=== PATIENT | female | born 1995 | race Caucasian/White ===

== ENCOUNTER 2024-04-24 01:52 | Emergency (ER) | payer OTHER, SELFPAY ==
[2024-04-24 02:03] VITALS: BP 120/67; PULSE 103; RESP 20; TEMP 36.7; O2SAT 98; BMI 32.2
[2024-04-24 02:40] LABS: Basophils Percent Auto 0.2 % (0-2); Eosinophils Absolute Auto 0.1 X10*3/uL (0.0-0.4); Hematocrit 38.6 % (37.0-47.0); Hemoglobin 13.5 g/dl (12.0-16.0); Imm Gran Abs Auto 0.01 X10*3/uL (0.00-0.03); Imm Gran Pct Auto 0.2 % (0.0-0.4); Lymphocytes Absolute Auto 1.3 X10*3/uL (1.2-4.9); MANUAL DIFF FLAG NO; Mean Corpuscular Hemoglobin 27.7 pg (27.0-33.0); Mean Corpuscular Volume 79.3 fL (80.0-98.0); Mean Platelet Volume 9.7 fL (9.4-12.3); Monocytes Absolute Auto 0.5 X10*3/uL (0.1-1.2); Monocytes Percent Auto 9.2 % (2-11); Neutrophils Absolute Auto 3.9 x10*3/uL (2.0-8.3); Neutrophils Percent Auto 67.4 % (45-73); Platelet Count 200 X10*3/uL (160-400); Red Blood Count 4.87 X10*6/uL (4.20-5.50); Red Cell Distribution Width 12.7 % (11.0-16.0); White Blood Count 5.8 X10*3/uL (4.8-10.8)
[2024-04-24 03:00] LABS: Alanine Aminotransferase 64 U/L (0-31); Anion Gap 11 (12-20); Aspartate Amino Transferase 64 U/L (5-31); Bilirubin Total 0.8 mg/dL (0.0-1.0); Blood Urea Nitrogen 6 mg/dL (9-16); Calcium 8.9 mg/dL (8.4-10.2); Carbon Dioxide 21 mmol/L (22-29); Chloride 111 mmol/L (96-108); Creatinine Clr Calc Pharmacy 124.7; Estimated Glomerular Filt Rate > 60; Glucose Random 109 mg/dL (60-115); HCG Quantitative < 2 mIU/mL; Potassium 3.5 mmol/L (3.3-5.1); Sodium 139 mmol/L (135-145); Total Protein 7.3 g/dL (6.5-8.0)
[2024-04-24 03:28] LABS: Alkaline Phosphatase 61 U/L (39-117)
[2024-04-24 03:57] VITALS: BP 117/83; PULSE 88; RESP 20; TEMP 36.7; O2SAT 100
[2024-04-24 07:01] VITALS: BP 115/76; PULSE 81; RESP 16; O2SAT 97
--- NOTE | 2024-04-24 07:15 | ED.GENADULT ---
HPI - General Adult General Chief complaint: General Medical Stated complaint: serotonin syndrome? Time Seen by Provider: 04/24/24 07:09 Source: patient Mode of arrival: ambulatory Limitations: no limitations History of Present Illness HPI narrative: This is a 29 years old patient presented to the emergency department complaining of cramps in the lower extremity, malaise increasing anxiety. She has history of anxiety disorder, depression she has been having diarrhea and vomiting for about 8 days. She was seen at the urgent care she was given and Zofran she has been taking Lexapro and now she is concerned about serotonin syndrome.. Onset (ago): day(s) (8) Radiation: non-radiation Severity: moderate Quality: burning Pain Consistency: constant Relieving factors: none Exacerbating factors: none Associated symptoms: denies other symptoms Treatments prior to arrival: none Related Data Allergies Allergy/AdvReac Type Severity Reaction Status Date / Time Sulfa (Sulfonamide Allergy Unknown Verified 04/24/24 02:09 Antibiotics) Review of Systems Constitutional: Constitutional: Reports no additional constitutional complaints ENT: Reports system reviewed and no additional complaints, except as documented Cardiovascular: Cardiovascular: Reports no additional cardiovascular complaints Respiratory: Respiratory: Reports no additional respiratory complaints PMFSH Past Medical History PMFSH Narrative: Anxiety, depression Social History Social History Advance Directives: No Advance Directives Information Provided: Yes Do you have a plan to hurt others: No Plan Patient : No Physical Exam ED Vital Signs: Vital Signs - 24 hr 04/24/24 02:03 04/24/24 03:57 04/24/24 07:01 Temperature 98.1 F 98.1 F Pulse Rate 103 H 88 81 Respiratory Rate 20 20 16 Blood Pressure 120/67 117/83 115/76 Pulse Oximetry 98 100 97 Oxygen Delivery Method Room Air Room Air Room Air 04/24/24 08:02 04/24/24 10:04 04/24/24 10:34 Temperature 97.3 F Pulse Rate 73 63 77 Respiratory Rate 16 16 18 Blood Pressure 127/84 117/78 113/75 Pulse Oximetry 100 97 100 Oxygen Delivery Method Room Air Room Air Room Air BMI result Body Mass Index 32.2 Patient looks well no toxic-appearing Const General: cooperative Nutritional Appearance: well nourished Orientation/consciousness: patient oriented x3 HENMT Head: Yes normal to inspection Ears: hearing grossly normal bilaterally General nose exam: Normal external nose present Face and sinus: Yes normal facial exam Neck Neck: Yes normal visual inspection and Yes full ROM Chest Chest palpation & inspection: normal inspection of the chest Resp Effort & Inspection: normal respiratory effort Auscultation: clear to auscultation bilaterally Cardio Jugular venous distension: no JVD Rate: regular rate Rhythm: regular rhythm GI Inspection: Yes normal to inspection Palpation (GI): Soft to palpation, not firm and nontender Skin General skin exam: no rashes or lesions noted, elasticity normal and turgor normal Neuro General: patient oriented x3 Cranial nerves: Yes CN's II-XII intact bilaterally Course Reevaluation(s) Reevaluation #1: feeeling better Time: 08:58 Reevaluation #2: asymptomatic at this time anticipate discharge Time: 10:23 Medications Administered Discontinued Medications Generic Name Dose Route Start Last Admin Trade Name Freq PRN Reason Stop Dose Admin Sodium Chloride 1,000 mls @ 999 mls/hr 04/24/24 07:15 04/24/24 08:30 Ns IVCONT 04/24/24 08:15 Infused .Q1H1M JITENDRA Infusion Sodium Chloride 1,000 mls @ 999 mls/hr 04/24/24 08:45 04/24/24 10:36 Ns IV 04/24/24 09:45 Infused .Q1H1M JITENDRA Infusion Ketorolac Tromethamine 15 mg 04/24/24 07:13 04/24/24 07:22 Ketorolac Tromethamine 15 Mg/Ml Vial IVPUSH 04/24/24 07:14 15 mg ONCE ONE Administration Lorazepam 0.5 mg 04/24/24 07:13 04/24/24 07:23 Lorazepam 2 Mg/Ml Vial IVPUSH 04/24/24 07:14 0.5 mg ONCE ONE Administration Medical Decision Making Medical Decision Making MDM Narrative: Patient presented with legs g increasing anxiety we will get blood work including electrolytes and we will administer IV fluids Differential Diagnosis Differential Diagnoses: The differential diagnosis associated with the presentation includes Dehydration/electrolyte abnormality/renal failure Admission/Observation Consideration of admission/observation: Escalation of care including admission/observation considered Lab Data [facility] Lab Attestation statement: I reviewed the patient's lab results. 04/24/24 02:35 04/24/24 02:35 Labs: Lab Results 04/24/24 Range/Units 02:35 WBC 5.8 (4.8-10.8) X10*3/uL RBC 4.87 (4.20-5.50) X10*6/uL Hgb 13.5 (12.0-16.0) g/dl Hct 38.6 (37.0-47.0) % MCV 79.3 L (80.0-98.0) fL MCH 27.7 (27.0-33.0) pg MCHC 35.0 (31.0-35.0) g/dl RDW 12.7 (11.0-16.0) % Plt Count 200 (160-400) X10*3/uL MPV 9.7 (9.4-12.3) fL Immature Gran % (Auto) 0.2 (0.0-0.4) % Neut % (Auto) 67.4 (45-73) % Lymph % (Auto) 22.0 (20-40) % [place] % (Auto) 9.2 (2-11) % Eos % (Auto) 1.0 (0-4) % Baso % (Auto) 0.2 (0-2) % Lymph # (Auto) 1.3 (1.2-4.9) X10*3/uL [place] # (Auto) 0.5 (0.1-1.2) X10*3/uL Eos # (Auto) 0.1 (0.0-0.4) X10*3/uL Baso # (Auto) 0.0 (0.0-0.2) X10*3/uL Abs Immat Gran (auto) 0.01 (0.00-0.03) X10*3/uL Absolute Neuts (auto) 3.9 (2.0-8.3) x10*3/uL Absolute Nucleated RBC 0.000 (0.0-0.012) X10*3/uL Nucleated RBC % (auto) 0.0 (0.0-0.2) /100WBC Sodium 139 (135-145) mmol/L Potassium 3.5 (3.3-5.1) mmol/L Chloride 111 H (96-108) mmol/L Carbon Dioxide 21 L (22-29) mmol/L Anion Gap 11 L (12-20) BUN 6 L (9-16) mg/dL Creatinine 0.86 (0.5-1.4) mg/dL Estim Creat Clear Calc 124.7 Estimated GFR > 60 Random Glucose 109 (60-115) mg/dL Calcium 8.9 (8.4-10.2) mg/dL Total Bilirubin 0.8 (0.0-1.0) mg/dL AST 64 H (5-31) U/L ALT 64 H (0-31) U/L Alkaline Phosphatase 61 (39-117) U/L Total Creatine Kinase 139 (26-140) U/L Total Protein 7.3 (6.5-8.0) g/dL Albumin 4.0 (3.5-5.0) g/dL Beta HCG, Quant < 2 mIU/mL Independent Historian significative other Discharge Plan Discharge Clinical Impression: Vomiting Qualifiers: Vomiting type: unspecified Nausea presence: with nausea Qualified Code(s): R11.2 - Nausea with vomiting, unspecified Patient Disposition: Home, Self-Care Instructions: Dehydration (ED), Acute Nausea and Vomiting (ED) Additional Instructions: Follow-up with your primary care physician clear liquid diet return if worse Referrals: Physician,None [Primary Care Provider] - 2 days Stand Alone Forms: Work/School Release Interventions: ED Discharge Assessment Last Done: 04/24/24 10:34 Discharge Date/Time: 04/24/24 10:40 Print Language: Citizen Of [place]
[2024-04-24] MEDS: 0.9 % Sodium Chloride 1,000 ML 999 ML IVCONT (07:19)
[2024-04-24] MEDS: Ketorolac Tromethamine 15 MG/ML VIAL IVPUSH (07:22)
[2024-04-24] MEDS: LORazepam 2 MG/ML VIAL 0.5 MG IVPUSH (07:23)
--- NOTE | 2024-04-24 07:40 | PC.NURSE ---
Pt comes to ED today for c/o muscle rigidity, n/v, and headache. Pt reports having Norovirus x9 days with n/v/d. States she was seen at [facility] and given Rx for Zofran in which she had been taking to alleviate her n/v. She reports once she was feeling better she then took her Rx Lexapro 20mg that she was unable to take due to her n/v and within 1 hour she was experiencing significant muscle rigidity to her thighs, increased agitation, and hot flashes. She reports she is concerned that her Lexapro may have interacted with her Zofran. A&Ox3 Skin is warm and dry Breaths and speech are unlabored. VSS, afebrile. Facial symmetry present. 20g placed to RAC IVF and medications administered per MAR. Awaiting disposition.
[2024-04-24 08:02] VITALS: BP 127/84; PULSE 73; RESP 16; O2SAT 100
[2024-04-24] MEDS: 0.9 % Sodium Chloride 1,000 ML 999 ML IV (08:45)
--- NOTE | 2024-04-24 08:49 | PC.NURSE ---
Pt reports an improvement in her overall feeling but requests an additional bag of fluids. Verbal order given by Dr. Brooks and read back for 1000ml NS--order entered and administered. Will reassess after fluids have infused.
--- NOTE | 2024-04-24 09:22 | PC.NURSE ---
Pt requests PO liquids. Apple juice given to see if can be tolerated.
[2024-04-24 10:04] VITALS: BP 117/78; PULSE 63; RESP 16; O2SAT 97
--- NOTE | 2024-04-24 10:17 | PC.NURSE ---
Pt able to tolerate PO liquids well; no dry heaving or vomiting. Pt reports feeling well at this time. Awaiting dispo.
[2024-04-24 10:34] VITALS: BP 113/75; PULSE 77; RESP 18; TEMP 36.3; O2SAT 100
== END 2024-04-24 10:40 | disposition home or self-care (01) ==
PROVIDERS: Emergency Provider Emergency Medicine
DX: R11.2 Nausea with vomiting, unspecified (principal); F41.9 Anxiety disorder, unspecified; G47.62 Sleep related leg cramps; R25.2 Cramp and spasm; R53.81 Other malaise; Z79.899 Other long term (current) drug therapy
CPT/HCPCS: 36415; 80053; 82550; 84702; 85025; 96361; 96374; 96375; 99284; 99285; J1885; J2060